=== PATIENT | female | born 1975 | race Caucasian/White ===

== ENCOUNTER 2023-08-17 17:44 | Emergency (ER) | payer OTHER ==
[2023-08-17 18:10] VITALS: BP 121/83; PULSE 76; RESP 18; TEMP 98.8; BMI 22.7
[2023-08-17] MEDS ORDERED: IBUPROFEN 400 MG TABLET (FP) PO ONE (18:56)
[2023-08-17] MEDS: IBUPROFEN 400 MG TABLET (FP) PO ONE (18:58)
[2023-08-17] MEDS ORDERED: ONDANSETRON 4 MG TABLET PO ONE (19:03)
== END 2023-08-17 19:05 | disposition home or self-care (01) ==
LOC: FER 17:44
DX: R51.9 Headache, unspecified (principal); F07.81 Postconcussional syndrome; R11.0 Nausea; H53.149 Visual discomfort, unspecified; M54.2 Cervicalgia
CPT/HCPCS: 99283-25